=== PATIENT | male | born 1965 | race Caucasian/White ===

== ENCOUNTER 2018-10-16 09:15 | Observation (INO) | payer MEDICAID, OTHER ==
[~2018-10-16] VITALS: Ht 175.3 cm; Wt 97.0 kg
--- NOTE | 2018-10-16 09:32 | NUR ---
Pt ambulates with steady gait and balance to room from triage. SI precautions put in place. Pt provided hospital gown to change into. All personal belongings removed and placed in personal belonging bags to be placed in ED locker for safe keeping. NADN. No defecits observed.
[2018-10-16 09:56] LABS: MICROSCOPIC NOT IND
[2018-10-16 09:58] LABS: CULTURE INDICATED? NO
--- NOTE | 2018-10-16 10:04 | NUR ---
LATE NOTE ENTRY FOR 0935: Pt presents to ED today with c/o SI and constant morbid thoughts. Pt states, "I have constant thoughts of wanting to hurtmyself. I would drink a bunch of vodka and slit my wrist. I have bipolar and I drink when I can afford it a half a gallon of vodka a day. I havn't had a drink in one week. I can't live like this anymore. I am afraid I am going to hurt myself." Pt denies chest pain, trauma, n/v/d. CMS intact. NADN. No defecits observed. Pt resting on gurney and provided warm blanket and socks. Pt watching T.V. Pt states, "I lost my glasses, I am legally blind, I can't see anything. Can you help me get glasses?" Breakfast tray ordered for pt. Pt provided urine sample. No other needs requested at this time. All SI precautions in place. Sitter near doorway for observation.
[2018-10-16 10:06] LABS: MEAN CORPUSCULAR HEMOGLOBIN 29.9 pg (27.5-34.5); MEAN CORPUSCULAR HGB CONC 33.9 g/dL (33.2-36.2); MEAN CORPUSCULAR VOLUME 88.4 fL (81-97); PLATELET COUNT 277 x10^3/uL (130-400); RED BLOOD COUNT 4.95 x10^6/uL (4.38-5.82); RED CELL DISTRIBUTION WIDTH 13.9 % (9.4-14.8)
[2018-10-16 10:07] LABS: AMPHETAMINE SCREEN, URINE Negative (Negative); BARBITURATE SCREEN, URINE Negative (Negative); BENZODIAZEPINE SCREEN, URINE Negative (Negative); CANNABINOID SCREEN, URINE Negative (Negative); COCAINE SCREEN, URINE Negative (Negative); METHADONE SCREEN, URINE Negative (Negative); OPIATE SCREEN, URINE Negative (Negative)
[2018-10-16 10:18] LABS: ALANINE AMINOTRANSFERASE 14 U/L (12-78); ALBUMIN 3.3 g/dL (3.4-5.0); ANION GAP 7 mmol/L (5-15); CALCIUM 8.6 mg/dL (8.5-10.1); CHLORIDE 108 mmol/L (98-107); CREATININE 0.87 mg/dL (0.7-1.3)
[2018-10-16 10:28] LABS: ALKALINE PHOSPHATASE 70 U/L (45-117); BILIRUBIN,TOTAL 0.8 mg/dL (0.2-1.0); SALICYLATE LEVEL < 1.7 mg/dL (2.8-20.0); TOTAL PROTEIN 7.1 g/dL (6.4-8.2)
[2018-10-16 10:29] LABS: ACETAMINOPHEN < 2 mcg/mL (10-30)
[2018-10-16 10:30] LABS: BASOPHILS # (AUTO) 0.01 x10^3/uL (0-0.1); BASOPHILS % (AUTO) 0 % (0-1); EOSINOPHILS # (AUTO) 0.06 x10^3/uL (0-0.4); EOSINOPHILS % (AUTO) 1 % (1-7); LYMPHOCYTES # (AUTO) 1.56 x10^3/uL (1-3.4); LYMPHOCYTES % (AUTO) 14 % (22-44); MD SCAN; MONOCYTES # (AUTO) 0.16 x10^3/uL (0.2-0.8); MONOCYTES % (AUTO) 1 % (2-9); NEUTROPHILS # (AUTO) 9.46 x10^3/uL (1.8-6.8); NEUTROPHILS % (AUTO) 84 % (42-75)
--- NOTE | 2018-10-16 10:35 | NUR ---
Pt resting on keaton. BRUCEN. All SI precautions in place. No needs expressed at this time. Sitter near doorway for observation.
--- NOTE | 2018-10-16 13:33 | NUR ---
Late note entry for 12:30: Provided pt lunch tray. Pt appreciative. Sitter near doorway in direct line of sight for observation. All SI precautions remain in place. Pt requesting glasses. No other needs requested at this time.
--- NOTE | 2018-10-16 13:33 | NUR ---
late note entry for 11:30: Pt requesting information about plan of care. Updated pt on plan of care. Pt states understanding.
--- NOTE | 2018-10-16 14:26 | NUR ---
SOC MD called and requested last set of vital signs, provided MD information. SOC MD requested to speak with ED MD. Transfered call to ED MD.
--- NOTE | 2018-10-16 14:44 | NUR ---
lunch rn: pt tbadm at this time. Pt has sitter outside room for continous safety monitoring.
[2018-10-16] MEDS ORDERED: BISACODYL 10 MG SUPP PR PRN (16:00)
[2018-10-16] MEDS ORDERED: POLYETHYLENE GLYCOL 17 GM PACKET PO PRN (16:00)
[2018-10-16] MEDS ORDERED: ONDANSETRON ODT 4 MG PO PRN (16:00)
[2018-10-16] MEDS ORDERED: CHLORDIAZEPOXIDE 5 MG CAPSULE PO PRN (16:00)
[2018-10-16] MEDS ORDERED: ZIPRASIDONE 20MG CAPSULE PO PRN (16:00)
[2018-10-16] MEDS ORDERED: DOCUSATE 100 MG CAPSULE PO PRN (16:00)
[2018-10-16] MEDS ORDERED: NICOTINE 14MG/24 HR PATCH.TD24 ONE (16:18)
[2018-10-16] MEDS ORDERED: LORazepam 1MG TABLET ONE (16:18)
[2018-10-16] MEDS ORDERED: NICOTINE 14MG/24 HR PATCH.TD24 TD ONE (16:30)
[2018-10-16] MEDS: LORazepam 1MG TABLET PO PRN ×2 (16:32→21:07)
--- NOTE | 2018-10-16 16:33 | NUR ---
Provided medication per EMAR and pt request. Pt stating "having panic attacks" Pt AOX4, unlabored respirations equal bilaterally, NADN. Pt resting on gurney stating concerns of "being kicked out". Pt re-educated about plan of care. Pt states comfort in plan of care. No other needs expressed at this time. All SI precautions remain in place. Sitter near doorway for observation.
--- NOTE | 2018-10-16 16:35 | NUR ---
Ordered dinner tray for pt
--- NOTE | 2018-10-16 16:35 | NUR ---
Sent yellow slip to pharmacy for medication request.
--- NOTE | 2018-10-16 18:12 | NUR ---
SBAR report from SIMI Tiwari gave her room 264 and asked to wait 10 minutes due to housekeeping is currently cleaning the room.
--- NOTE | 2018-10-16 18:13 | NUR ---
Provided repor to SIMI Palm. All questions answered. PT ready to transfer to floor from ED.
--- NOTE | 2018-10-16 18:14 | NUR ---
LATE NOTE FOR 173: Pt talking with sitter. ZHAO. No needs expressed at this time.
--- NOTE | 2018-10-16 18:15 | NUR ---
Providing pt dinner SI food tray. Pt appreciative.
--- NOTE | 2018-10-16 19:03 | NUR ---
Provided report to SIMI Gavin. All questions answered.
[2018-10-16 19:45] VITALS: BP 126/85
[2018-10-16] MEDS: AMOXICILLIN/CLAV 875-125MG TABLET PO SCH (21:07)
[2018-10-16] MEDS: MUPIROCIN OINT 2%, 22GM TP SCH ×2 (21:29→21:30)
[2018-10-17 06:14] LABS: HCT (SEDRATE) 41.2 % (39.2-51.8)
[2018-10-17 06:19] LABS: BASOPHILS # (AUTO) 0.07 x10^3/uL (0-0.1); BASOPHILS % (AUTO) 1 % (0-1); EOSINOPHILS # (AUTO) 0.15 x10^3/uL (0-0.4); EOSINOPHILS % (AUTO) 2 % (1-7); LYMPHOCYTES # (AUTO) 1.54 x10^3/uL (1-3.4); LYMPHOCYTES % (AUTO) 22 % (22-44); MD NO; MEAN CORPUSCULAR HEMOGLOBIN 30.2 pg (27.5-34.5); MEAN CORPUSCULAR HGB CONC 33.5 g/dL (33.2-36.2); MEAN CORPUSCULAR VOLUME 90.1 fL (81-97); MEAN PLATELET VOLUME 7.8 fL (7.4-10.4); MONOCYTES # (AUTO) 0.71 x10^3/uL (0.2-0.8); MONOCYTES % (AUTO) 10 % (2-9); NEUTROPHILS # (AUTO) 4.43 x10^3/uL (1.8-6.8); NEUTROPHILS % (AUTO) 64 % (42-75); PLATELET COUNT 221 x10^3/uL (130-400); RED BLOOD COUNT 4.66 x10^6/uL (4.38-5.82); RED CELL DISTRIBUTION WIDTH 14.4 % (9.4-14.8)
[2018-10-17 06:25] LABS: ANION GAP 7 mmol/L (5-15); C-REACTIVE PROTEIN, QUANT 0.23 mg/dL (0.02-0.49); CALCIUM 8.3 mg/dL (8.5-10.1); CHLORIDE 109 mmol/L (98-107); CREATININE 0.74 mg/dL (0.7-1.3)
[2018-10-17 08:00] VITALS: BP 109/72
[2018-10-17] MEDS: THIAMINE 100MG TABLET PO SCH (08:48)
[2018-10-17] MEDS: AMOXICILLIN/CLAV 875-125MG TABLET PO SCH ×2 (08:48→21:14)
[2018-10-17] MEDS: MULTIVITAMIN 1 TABLET PO SCH (08:48)
[2018-10-17] MEDS: FOLIC ACID 1 MG TABLET PO SCH (08:48)
[2018-10-17] MEDS: MUPIROCIN OINT 2%, 22GM TP SCH ×3 (09:18→21:00)
[2018-10-17] MEDS: NICOTINE 14MG/24 HR PATCH.TD24 TD SCH (16:45)
[2018-10-17 19:41] VITALS: BP 126/88
[2018-10-18 06:01] VITALS: BP 117/83
[2018-10-18] MEDS: LORazepam 1MG TABLET PO PRN (06:04)
[2018-10-18 07:34] VITALS: BP 132/91
[2018-10-18] MEDS: FOLIC ACID 1 MG TABLET PO SCH (08:13)
[2018-10-18] MEDS: MUPIROCIN OINT 2%, 22GM TP SCH ×3 (08:13→20:21)
[2018-10-18] MEDS: THIAMINE 100MG TABLET PO SCH (08:13)
[2018-10-18] MEDS: MULTIVITAMIN 1 TABLET PO SCH (08:13)
[2018-10-18] MEDS: AMOXICILLIN/CLAV 875-125MG TABLET PO SCH ×2 (08:13→20:14)
[2018-10-18 08:42] LABS: BASOPHILS # (AUTO) 0.04 x10^3/uL (0-0.1); BASOPHILS % (AUTO) 1 % (0-1); EOSINOPHILS # (AUTO) 0.14 x10^3/uL (0-0.4); EOSINOPHILS % (AUTO) 2 % (1-7); LYMPHOCYTES # (AUTO) 1.69 x10^3/uL (1-3.4); LYMPHOCYTES % (AUTO) 26 % (22-44); MD NO; MEAN CORPUSCULAR HEMOGLOBIN 29.3 pg (27.5-34.5); MEAN CORPUSCULAR HGB CONC 32.8 g/dL (33.2-36.2); MEAN CORPUSCULAR VOLUME 89.2 fL (81-97); MEAN PLATELET VOLUME 7.9 fL (7.4-10.4); MONOCYTES # (AUTO) 0.55 x10^3/uL (0.2-0.8); MONOCYTES % (AUTO) 8 % (2-9); NEUTROPHILS # (AUTO) 4.22 x10^3/uL (1.8-6.8); NEUTROPHILS % (AUTO) 64 % (42-75); PLATELET COUNT 239 x10^3/uL (130-400); RED BLOOD COUNT 4.71 x10^6/uL (4.38-5.82); RED CELL DISTRIBUTION WIDTH 14.4 % (9.4-14.8)
[2018-10-18 08:49] LABS: ANION GAP 5 mmol/L (5-15); CALCIUM 8.6 mg/dL (8.5-10.1); CHLORIDE 110 mmol/L (98-107); CREATININE 0.76 mg/dL (0.7-1.3)
[2018-10-18] MEDS: NICOTINE 14MG/24 HR PATCH.TD24 TD SCH (16:32)
[2018-10-18 19:24] VITALS: BP 137/82
[2018-10-18] MEDS: TEMAZEPAM 15 MG CAPSULE PO PRN (20:14)
[2018-10-19 07:50] VITALS: BP 134/95
[2018-10-19] MEDS: AMOXICILLIN/CLAV 875-125MG TABLET PO SCH ×2 (08:15→20:02)
[2018-10-19] MEDS: MULTIVITAMIN 1 TABLET PO SCH (08:15)
[2018-10-19] MEDS: THIAMINE 100MG TABLET PO SCH (08:16)
[2018-10-19] MEDS: FOLIC ACID 1 MG TABLET PO SCH (08:18)
[2018-10-19] MEDS: MUPIROCIN OINT 2%, 22GM TP SCH ×3 (08:19→20:27)
[2018-10-19] MEDS: NICOTINE 14MG/24 HR PATCH.TD24 TD SCH (11:15)
[2018-10-19] MEDS: NICOTINE GUM 2 MG BC PRN ×2 (18:06→20:09)
[2018-10-19 20:00] VITALS: BP 130/83
[2018-10-20 07:20] VITALS: BP 127/91
[2018-10-20] MEDS: NICOTINE GUM 2 MG BC PRN ×6 (07:23→20:06)
[2018-10-20] MEDS: MULTIVITAMIN 1 TABLET PO SCH (07:48)
[2018-10-20] MEDS: AMOXICILLIN/CLAV 875-125MG TABLET PO SCH ×2 (07:48→20:06)
[2018-10-20] MEDS: THIAMINE 100MG TABLET PO SCH (07:48)
[2018-10-20] MEDS: MUPIROCIN OINT 2%, 22GM TP SCH ×3 (07:49→20:43)
[2018-10-20] MEDS: FOLIC ACID 1 MG TABLET PO SCH (07:49)
[2018-10-20 19:20] VITALS: BP 128/86
[2018-10-21 07:35] VITALS: BP 135/94
[2018-10-21] MEDS: ACETAMINOPHEN 325 MG TABLET PO PRN (07:35)
[2018-10-21] MEDS: LORazepam 1MG TABLET PO PRN ×2 (07:44→21:17)
[2018-10-21 07:50] VITALS: BP 124/80
[2018-10-21] MEDS: MULTIVITAMIN 1 TABLET PO SCH (08:08)
[2018-10-21] MEDS: AMOXICILLIN/CLAV 875-125MG TABLET PO SCH ×2 (08:08→21:17)
[2018-10-21] MEDS: FOLIC ACID 1 MG TABLET PO SCH (08:08)
[2018-10-21] MEDS: THIAMINE 100MG TABLET PO SCH (08:08)
[2018-10-21] MEDS: MUPIROCIN OINT 2%, 22GM TP SCH ×3 (08:49→21:17)
[2018-10-21] MEDS: NICOTINE GUM 2 MG BC PRN ×5 (11:35→21:17)
[2018-10-21 19:35] VITALS: BP 126/80
[2018-10-21] MEDS: TEMAZEPAM 15 MG CAPSULE PO PRN (20:19)
[2018-10-22] MEDS: NICOTINE GUM 2 MG BC PRN ×6 (04:32→20:08)
[2018-10-22 08:22] VITALS: BP 135/90
[2018-10-22] MEDS: MUPIROCIN OINT 2%, 22GM TP SCH ×3 (09:09→20:06)
[2018-10-22] MEDS: THIAMINE 100MG TABLET PO SCH (09:09)
[2018-10-22] MEDS: AMOXICILLIN/CLAV 875-125MG TABLET PO SCH ×2 (09:09→20:07)
[2018-10-22] MEDS: MULTIVITAMIN 1 TABLET PO SCH (09:09)
[2018-10-22] MEDS: FOLIC ACID 1 MG TABLET PO SCH (09:10)
[2018-10-22 19:53] VITALS: BP 129/71
[2018-10-22] MEDS: TEMAZEPAM 15 MG CAPSULE PO PRN (20:13)
[2018-10-23 07:18] LABS: BASOPHILS # (AUTO) 0.03 x10^3/uL (0-0.1); BASOPHILS % (AUTO) 1 % (0-1); EOSINOPHILS # (AUTO) 0.15 x10^3/uL (0-0.4); EOSINOPHILS % (AUTO) 2 % (1-7); LYMPHOCYTES % (AUTO) 29 % (22-44); MD NO; MEAN CORPUSCULAR HEMOGLOBIN 29.6 pg (27.5-34.5); MEAN CORPUSCULAR HGB CONC 32.7 g/dL (33.2-36.2); MEAN CORPUSCULAR VOLUME 90.3 fL (81-97); MEAN PLATELET VOLUME 8.3 fL (7.4-10.4); MONOCYTES # (AUTO) 0.73 x10^3/uL (0.2-0.8); MONOCYTES % (AUTO) 10 % (2-9); NEUTROPHILS % (AUTO) 59 % (42-75); PLATELET COUNT 208 x10^3/uL (130-400); RED BLOOD COUNT 4.63 x10^6/uL (4.38-5.82); RED CELL DISTRIBUTION WIDTH 14.3 % (9.4-14.8)
[2018-10-23 07:19] LABS: HCT (SEDRATE) 40.9 % (39.2-51.8)
[2018-10-23 07:28] LABS: ANION GAP 5 mmol/L (5-15); CALCIUM 8.5 mg/dL (8.5-10.1); CHLORIDE 110 mmol/L (98-107)
[2018-10-23 07:29] LABS: C-REACTIVE PROTEIN, QUANT 0.04 mg/dL (0.02-0.49); CREATININE 0.91 mg/dL (0.7-1.3)
[2018-10-23] MEDS: MULTIVITAMIN 1 TABLET PO SCH (07:32)
[2018-10-23] MEDS: FOLIC ACID 1 MG TABLET PO SCH (07:32)
[2018-10-23] MEDS: AMOXICILLIN/CLAV 875-125MG TABLET PO SCH (07:32)
[2018-10-23] MEDS: THIAMINE 100MG TABLET PO SCH (07:32)
[2018-10-23] MEDS: MUPIROCIN OINT 2%, 22GM TP SCH (07:33)
[2018-10-23 07:55] VITALS: BP 128/84
[2018-10-23] MEDS: NICOTINE GUM 2 MG BC PRN ×5 (08:10→17:31)
[2018-10-23 19:16] VITALS: BP 122/79
[2018-10-23] MEDS: TEMAZEPAM 15 MG CAPSULE PO PRN (20:13)
[2018-10-24 08:26] VITALS: BP 120/81
[2018-10-24] MEDS: FOLIC ACID 1 MG TABLET PO SCH (08:47)
[2018-10-24] MEDS: MULTIVITAMIN 1 TABLET PO SCH (08:47)
[2018-10-24] MEDS: NICOTINE GUM 2 MG BC PRN ×5 (08:48→19:43)
[2018-10-24] MEDS: THIAMINE 100MG TABLET PO SCH (08:48)
[2018-10-24] MEDS: ACETAMINOPHEN 325 MG TABLET PO PRN (14:47)
[2018-10-24 19:40] VITALS: BP 117/70
[2018-10-24] MEDS: TEMAZEPAM 15 MG CAPSULE PO PRN (21:38)
[2018-10-25] MEDS: NICOTINE GUM 2 MG BC PRN ×6 (04:43→20:42)
[2018-10-25] MEDS: LORazepam 1MG TABLET PO PRN (04:49)
[2018-10-25] MEDS: MULTIVITAMIN 1 TABLET PO SCH (07:53)
[2018-10-25] MEDS: FOLIC ACID 1 MG TABLET PO SCH (07:53)
[2018-10-25] MEDS: THIAMINE 100MG TABLET PO SCH (07:53)
[2018-10-25 07:58] VITALS: BP 122/84
[2018-10-25] MEDS: QUETIAPINE 25MG TABLET PO PRN (13:06)
[2018-10-25 19:37] VITALS: BP 111/71
[2018-10-25] MEDS: TEMAZEPAM 15 MG CAPSULE PO PRN (20:42)
[2018-10-26] MEDS: NICOTINE GUM 2 MG BC PRN (05:48)
[2018-10-26 07:24] VITALS: BP 126/84
[2018-10-26] MEDS: THIAMINE 100MG TABLET PO SCH (08:04)
[2018-10-26] MEDS: NICOTINE 7 MG/24 HR PATCH.TD24 TD SCH (08:04)
[2018-10-26] MEDS: FOLIC ACID 1 MG TABLET PO SCH (08:04)
[2018-10-26] MEDS: MULTIVITAMIN 1 TABLET PO SCH (08:04)
[2018-10-26 19:46] VITALS: BP 122/83
[2018-10-26] MEDS: LORazepam 1MG TABLET PO PRN (20:29)
[2018-10-27 07:42] VITALS: BP 127/86
[2018-10-27] MEDS: FOLIC ACID 1 MG TABLET PO SCH (07:54)
[2018-10-27] MEDS: THIAMINE 100MG TABLET PO SCH (07:54)
[2018-10-27] MEDS: MULTIVITAMIN 1 TABLET PO SCH (07:54)
[2018-10-27] MEDS: NICOTINE 7 MG/24 HR PATCH.TD24 TD SCH (08:39)
[2018-10-27] MEDS: LORazepam 1MG TABLET PO PRN (12:49)
[2018-10-27 19:27] VITALS: BP 125/76
[2018-10-27] MEDS: TEMAZEPAM 15 MG CAPSULE PO PRN (20:56)
[2018-10-28] MEDS: CITALOPRAM 20 MG TABLET PO SCH (07:39)
[2018-10-28] MEDS: NICOTINE 7 MG/24 HR PATCH.TD24 TD SCH (07:43)
[2018-10-28 08:12] VITALS: BP 119/81
[2018-10-28] MEDS: THIAMINE 100MG TABLET PO SCH (08:43)
[2018-10-28] MEDS: FOLIC ACID 1 MG TABLET PO SCH (08:43)
[2018-10-28] MEDS: MULTIVITAMIN 1 TABLET PO SCH (08:47)
[2018-10-28] MEDS ORDERED: LIDOCAINE 4% CREAM 5GM TUBE TP PRN (15:30)
[2018-10-28 19:46] VITALS: BP 121/81
[2018-10-28] MEDS: TEMAZEPAM 15 MG CAPSULE PO PRN (20:13)
[2018-10-28] MEDS: QUETIAPINE 25MG TABLET PO PRN (20:35)
[2018-10-28] MEDS: LORazepam 1MG TABLET PO PRN (21:11)
[2018-10-29 08:00] VITALS: BP 109/74
[2018-10-29] MEDS: THIAMINE 100MG TABLET PO SCH (08:08)
[2018-10-29] MEDS: NICOTINE 7 MG/24 HR PATCH.TD24 TD SCH (08:08)
[2018-10-29] MEDS: CITALOPRAM 20 MG TABLET PO SCH (08:08)
[2018-10-29] MEDS: FOLIC ACID 1 MG TABLET PO SCH (08:09)
[2018-10-29] MEDS: MULTIVITAMIN 1 TABLET PO SCH (08:09)
[2018-10-29] MEDS: QUETIAPINE 25MG TABLET PO PRN (12:32)
[2018-10-29 19:03] VITALS: BP 128/76
[2018-10-30 07:14] VITALS: BP 130/93
[2018-10-30] MEDS: FOLIC ACID 1 MG TABLET PO SCH (07:15)
[2018-10-30] MEDS: CITALOPRAM 20 MG TABLET PO SCH (07:15)
[2018-10-30] MEDS: NICOTINE 7 MG/24 HR PATCH.TD24 TD SCH (07:15)
[2018-10-30] MEDS: MULTIVITAMIN 1 TABLET PO SCH (07:15)
[2018-10-30] MEDS: THIAMINE 100MG TABLET PO SCH (07:15)
[2018-10-30] MEDS: LORazepam 1MG TABLET PO PRN ×2 (07:35→17:40)
[2018-10-30] MEDS ORDERED: LIDODERM 5% PATCH TD PRN (12:00)
[2018-10-30] MEDS: QUETIAPINE 25MG TABLET PO PRN (17:40)
[2018-10-30] MEDS: TEMAZEPAM 15 MG CAPSULE PO PRN (20:01)
[2018-10-30 20:03] VITALS: BP 123/75
[2018-10-31 07:57] VITALS: BP 125/80
[2018-10-31] MEDS: CITALOPRAM 20 MG TABLET PO SCH (08:25)
[2018-10-31] MEDS: FOLIC ACID 1 MG TABLET PO SCH (08:25)
[2018-10-31] MEDS: THIAMINE 100MG TABLET PO SCH (08:25)
[2018-10-31] MEDS: MULTIVITAMIN 1 TABLET PO SCH (08:25)
[2018-10-31] MEDS: NICOTINE 7 MG/24 HR PATCH.TD24 TD SCH (08:28)
[2018-10-31] MEDS: LORazepam 1MG TABLET PO PRN (12:19)
[2018-10-31 19:43] VITALS: BP 157/92
[2018-10-31] MEDS: TEMAZEPAM 15 MG CAPSULE PO PRN (21:54)
[2018-10-31] MEDS: QUETIAPINE 25MG TABLET PO PRN (21:54)
[2018-10-31 21:57] VITALS: BP 137/88
[2018-10-31 22:17] VITALS: BP 119/79
[2018-11-01 07:19] VITALS: BP 134/84
[2018-11-01] MEDS: NICOTINE 7 MG/24 HR PATCH.TD24 TD SCH (08:00)
[2018-11-01] MEDS: FOLIC ACID 1 MG TABLET PO SCH (08:02)
[2018-11-01] MEDS: THIAMINE 100MG TABLET PO SCH (08:02)
[2018-11-01] MEDS: MULTIVITAMIN 1 TABLET PO SCH (08:02)
[2018-11-01] MEDS: CITALOPRAM 20 MG TABLET PO SCH (08:02)
[2018-11-01] MEDS: LORazepam 1MG TABLET PO PRN ×2 (11:31→20:46)
[2018-11-01 20:00] VITALS: BP 139/90
[2018-11-01] MEDS: TEMAZEPAM 15 MG CAPSULE PO PRN (20:46)
[2018-11-02] MEDS: ACETAMINOPHEN 325 MG TABLET PO PRN (05:27)
[2018-11-02 07:15] VITALS: BP 128/86
[2018-11-02] MEDS: MULTIVITAMIN 1 TABLET PO SCH (07:56)
[2018-11-02] MEDS: CITALOPRAM 20 MG TABLET PO SCH (07:56)
[2018-11-02] MEDS: FOLIC ACID 1 MG TABLET PO SCH (07:57)
[2018-11-02] MEDS: THIAMINE 100MG TABLET PO SCH (07:57)
[2018-11-02] MEDS: NICOTINE 7 MG/24 HR PATCH.TD24 TD SCH (08:02)
== END 2018-11-02 11:10 | disposition left against medical advice (07) ==
LOC: ED 10:53 → EDIP 14:37 → INTOOBSV 15:50 → OBSVTOIN 15:50 → 2N 19:15
PROVIDERS: ADMIT Family Medicine; ATTEND Family Medicine
DX: R45.851 Suicidal ideations (principal); F32.9 Major depressive disorder, single episode, unspecified; L73.9 Follicular disorder, unspecified; F10.10 Alcohol abuse, uncomplicated; G89.29 Other chronic pain; I10 Essential (primary) hypertension; R56.9 Unspecified convulsions; Z72.0 Tobacco use; Z91.5 Personal history of self-harm
CPT/HCPCS: 36415; 80048; 80053; 80307; 80329; 81003; 84439; 84443; 85025; 85651; 86140; 99284; G0378; G0480

== ENCOUNTER 2018-11-11 11:42 | Emergency (ER) | payer MEDICAID ==
[~2018-11-11] VITALS: Ht 175.3 cm; Wt 101.8 kg
[2018-11-11] MEDS ORDERED: KETOROLAC 30 MG/1 ML ONE (12:17)
[2018-11-11] MEDS ORDERED: METHOCARBAMOL 750 MG TABLET ONE (12:17)
[2018-11-11] MEDS ORDERED: KETOROLAC 30 MG/1 ML IM ONE (12:30)
[2018-11-11] MEDS ORDERED: METHOCARBAMOL 750 MG TABLET PO ONE (12:30)
[2018-11-11 12:37] VITALS: BP 128/86
== END 2018-11-11 12:39 | disposition home or self-care (01) ==
LOC: ED 12:33
DX: S39.012A Strain of muscle, fascia and tendon of lower back, initial encounter (principal); S29.012A Strain of muscle and tendon of back wall of thorax, initial encounter; G89.29 Other chronic pain; X58.XXXA Exposure to other specified factors, initial encounter; Y93.89 Activity, other specified; Y92.89 Other specified places as the place of occurrence of the external cause; Y99.8 Other external cause status
CPT/HCPCS: 96372; 99283; J1885